=== PATIENT | male | born 1955 | race Caucasian/White ===

== ENCOUNTER → 2016-05-02 | Outpatient (CLI) | payer OTHER | LOC: MMPC 11:11 | PROVIDERS: ATTEND Internal Medicine | DX: E78.5 Hyperlipidemia, unspecified (principal); Z02.89 Encounter for other administrative examinations; I89.0 Lymphedema, not elsewhere classified; E66.01 Morbid (severe) obesity due to excess calories; G47.33 Obstructive sleep apnea (adult) (pediatric); Z12.5 Encounter for screening for malignant neoplasm of prostate | CPT/HCPCS: 99214; G0463 ==

== ENCOUNTER → 2016-08-29 | Outpatient (CLI) | payer OTHER | LOC: EKG 14:26 | PROVIDERS: ATTEND Internal Medicine | DX: G45.3 Amaurosis fugax (principal); H54.61 Unqualified visual loss, right eye, normal vision left eye; I89.0 Lymphedema, not elsewhere classified; I10 Essential (primary) hypertension; E66.01 Morbid (severe) obesity due to excess calories; F32.9 Major depressive disorder, single episode, unspecified; M17.2 Bilateral post-traumatic osteoarthritis of knee; G47.33 Obstructive sleep apnea (adult) (pediatric); Z02.89 Encounter for other administrative examinations | CPT/HCPCS: 99215; G0463 ==